=== PATIENT | female | born 1980 | race Caucasian/White ===

== ENCOUNTER 2017-11-09 04:46 | Inpatient (IN) | END 2017-11-10 18:56 | disposition home or self-care (01) | DRG 690 ==

== ENCOUNTER 2017-12-17 10:56 | Emergency (ER) | END 2017-12-17 14:10 | disposition home or self-care (01) ==

== ENCOUNTER 2018-01-28 00:11 | Emergency (ER) | END 2018-01-28 05:10 | disposition home or self-care (01) ==